=== PATIENT | female | born 1955 | race Caucasian/White ===

== ENCOUNTER → 2017-01-09 | Outpatient (CLI) | payer OTHER ==
[~2017-01-09] MED LIST: CITA10TA8 PO; DICL-201 PO; FLCP; LEVO200T PO; METH-307 PO
--- NOTE | 2017-01-09 12:40 | DIAGNOSTIC IMAGING REPORT ---
C-SPINE ROUTINE 4 OR 5 VIEWS CLINICAL HISTORY: CERVICALGIA; LUMBAGO COMPARISON STUDY: No previous studies for comparison. FINDINGS: Alignment of the cervical spine is anatomic. There is no fracture or suspicious lesion. There is moderate to marked disc space narrowing at C5-C6 with moderate disc space narrowing at C3-C4, C4-C5 and C6-C7. There is moderate multilevel facet arthrosis. IMPRESSION: 1. No cervical spine fracture. 2. Moderate multilevel degenerative disc disease and facet arthrosis most pronounced at C5-C6. Electronically signed by: Doug Alberts M.D. 01/09/2017 12:39 PM Dictated Date/Time: 01/09/2017 12:38 PM
--- NOTE | 2017-01-09 12:41 | DIAGNOSTIC IMAGING REPORT ---
L-SPINE MIN 4 VIEWS ROUTINE CLINICAL HISTORY: CERVICALGIA; LUMBAGO COMPARISON: None FINDINGS: There are suspected bilateral renal calculi, the largest of which is a 7 mm right renal calculus. Alignment of the lumbar spine is anatomic. Vertebral body heights are maintained. There is mild disc space narrowing with osteophytosis and vacuum disc phenomenon at L5-S1. There is moderate multilevel facet arthrosis. IMPRESSION: 1. No acute lumbar spine fracture. 2. Mild to moderate multilevel degenerative disc disease and facet arthrosis of the lumbar spine. 3. Suspected bilateral nephrolithiasis. Electronically signed by: oDug Alberts M.D. 01/09/2017 12:40 PM Dictated Date/Time: 01/09/2017 12:39 PM
== END | disposition home or self-care (01) ==
LOC: C.RADBC 11:37
PROVIDERS: ATTEND Anesthesiology
DX: M54.2 Cervicalgia (principal); M54.5 Low back pain

== ENCOUNTER → 2017-01-23 | Outpatient (CLI) | payer OTHER ==
--- NOTE | 2017-01-23 13:44 | DIAGNOSTIC IMAGING REPORT ---
CERVICAL WITHOUT CONTRAST HISTORY: 61 years-old Female CERVICAL RADICULITIS chronic neck pain with bilateral arm numbness COMPARISON: Cervical spine radiographs 01/09/2017 TECHNIQUE: Multiplanar multisequence MRI of the cervical spine was obtained without contrast. FINDINGS: There is reversal the normal cervical lordosis with 5 mm kyphosis centered at C5-C6. Intervertebral disc space narrowing is seen most prominently at the C3-C4 and C5-C6 levels as below. Signal within the cord is within normal limits. Imaged posterior fossa structures are unremarkable. Large [id number] localizer images demonstrate no gross abnormality of the neck or thorax. There is no compression deformity or marrow replacing process. Modic type I endplate changes are present at C4-C5 anteriorly. C2-C3: Broad-based posterior disc osteophyte complex without significant central canal or foraminal narrowing. Mild facet arthrosis. C3-C4: Moderate intervertebral disc space narrowing with mild to moderate facet arthrosis and broad-based posterior disc osteophyte complex causes mild bilateral foraminal narrowing. There is no significant central canal narrowing. C4-C5: Mild/moderate intervertebral disc space narrowing with moderate facet arthrosis is present in conjunction with broad-based posterior disc bulge and uncovertebral spurring effaces the ventral thecal sac without significant central canal narrowing. There is however mild/moderate left foraminal stenosis. C5-C6: Severe intervertebral disc space narrowing and moderate facet arthrosis is present with broad-based posterior disc bulge causing mild central canal, moderate right and mild to moderate left foraminal narrowing. C6-C7: Mild intervertebral disc space narrowing with broad-based posterior disc osteophyte complex and moderate facet arthrosis causes mild to moderate right foraminal narrowing. No significant left foraminal or central canal narrowing. C7-T1: No significant intervertebral disc space narrowing, central canal or foraminal narrowing. T1-T2: Broad-based posterior disc bulge effaces the ventral thecal sac and causes at least mild right foraminal narrowing. Central canal and left foramen are patent. The remaining imaged thoracic levels demonstrate no focal abnormality or high-grade narrowing on the sagittal imaging alone. IMPRESSION: 1. Discogenic degenerative changes are most pronounced at the C3-C4, C4-C5 and C5-C6 levels. At C5-C6, there is severe intervertebral disc space narrowing and moderate facet arthropathy with broad-based posterior disc bulge causing moderate right and mild to moderate left foraminal narrowing with mild central canal stenosis. 2. 5 degrees kyphotic curvature is centered at C5-C6. 3. Modic type I endplate changes are noted at C4-C5. 4. No fracture. The above report was generated using voice recognition software. It may contain grammatical, syntax or spelling errors. Electronically signed by: Renard Starks M.D. 01/23/2017 1:42 PM Dictated Date/Time: 01/23/2017 1:33 PM
== END | disposition home or self-care (01) ==
LOC: C.MRI 12:49
PROVIDERS: ATTEND Anesthesiology
DX: M54.12 Radiculopathy, cervical region (principal); M50.31 Other cervical disc degeneration, high cervical region; M50.321 Other cervical disc degeneration at C4-C5 level; M50.322 Other cervical disc degeneration at C5-C6 level; M48.02 Spinal stenosis, cervical region; M40.202 Unspecified kyphosis, cervical region

== ENCOUNTER 2017-07-24 19:27 | Emergency (ER) | payer OTHER ==
[~2017-07-24] VITALS: Ht 160 cm; Wt 88.8 kg
[~2017-07-24 19:27] MED LIST changes: -METH-307 PO
[2017-07-24 19:51] VITALS: TEMP 36.8; Ht 160 cm; Wt 88.8 kg
[2017-07-24] MEDS ORDERED: KETOROLAC TROMETHAMINE 30 MG/ML VIAL IV STA (20:32)
[2017-07-24] MEDS ORDERED: LIDODERM (LIDOCAINE) PATCH 5% TD STA (20:32)
[2017-07-24] MEDS ORDERED: HYDROmorphone INJ 0.5 MG/0.5 ML SYR IV STA (20:32)
[2017-07-24] MEDS ORDERED: ONDANSETRON INJ 2 MG/ML 2 ML VIAL IV STA (20:32)
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
[2017-07-24] MEDS ORDERED: CITA20TA4 PO (21:02)
[2017-07-24] MEDS ORDERED: METH-307 PO (21:02)
[2017-07-24] MEDS ORDERED: TRAM-10 PO (21:02)
[2017-07-24 21:19] LABS: BASO % 0.1 %; BASO ABS # 0.01 K/uL (0-0.2); EOS % 1.1 %; EOS ABS # 0.09 K/uL (0-0.5); HEMATOCRIT 37.8 % (37-47); HEMOGLOBIN 12.9 g/dL (12.0-16.0); IG# 0.01 K/uL (0.00-0.02); LYMPH % 29.3 %; LYMPH ABS # 2.35 K/uL (1.2-3.4); MEAN CORPUSCULAR HEMOGLOBIN 31.4 pg (25-34); MEAN CORPUSCULAR HGB CONC 34.1 g/dl (32-36); MEAN PLATELET VOLUME 9.7 fL (7.4-10.4); MONO % 8.1 %; MONO ABS # 0.65 K/uL (0.11-0.59); NEUT % 61.3 %; NEUT ABS # 4.91 K/uL (1.4-6.5); PLATELET COUNT 283 K/uL (130-400); RED CELL DISTRIBUTION WIDTH CV 12.5 % (11.5-14.5); RED CELL DISTRIBUTION WIDTH SD 42.4 fL (36.4-46.3); WHITE BLOOD COUNT 8.02 K/uL (4.8-10.8)
--- NOTE | 2017-07-24 21:27 | DIAGNOSTIC IMAGING REPORT ---
LUMBAR SPINE WITHOUT CT DOSE: HISTORY: Pain Pt c/o b/l flank pain TECHNIQUE: Multiaxial CT images of the lumbar spine were performed and reformatted in the sagittal and coronal plane without the use of contrast. A dose lowering technique was utilized adhering to the principles of ALARA. COMPARISON: None. FINDINGS: No fractures. No subluxation. Paraspinal soft tissues are unremarkable. Considerable degenerative disc changes noted at L5-S1 with associated vacuum disc. Transaxial images demonstrate moderate degenerative changes of posterior elements. A major component of narrowing of the spinal canal is not felt to be present. IMPRESSION: Degenerative change primarily at the L5-S1 disc space level. Otherwise unremarkable exam. Mild degenerative change of the posterior elements. No acute process. The above report was generated using voice recognition software. It may contain grammatical, syntax or spelling errors. Electronically signed by: Chiki Holloway M.D. 07/24/2017 9:26 PM Dictated Date/Time: 07/24/2017 9:25 PM
[2017-07-24 21:37] LABS: ALBUMIN 3.9 gm/dl (3.4-5.0); ALT/SGPT 22 U/L (12-78); BLOOD UREA NITROGEN 21 mg/dl (7-18); CALCIUM 9.2 mg/dl (8.5-10.1); CARBON DIOXIDE 27 mmol/L (21-32); CREATININE 1.03 mg/dl (0.60-1.20); GLUCOSE 101 mg/dl (70-99); LIPASE 331 U/L (73-393); POTASSIUM 3.6 mmol/L (3.5-5.1); SODIUM 140 mmol/L (136-145)
[2017-07-24 21:39] LABS: ALKALINE PHOSPHATASE 62 U/L (45-117); AST/SGOT 12 U/L (15-37); TOTAL PROTEIN 6.8 gm/dl (6.4-8.2)
--- NOTE | 2017-07-24 21:40 | DIAGNOSTIC IMAGING REPORT ---
ABD/PELVIS WITHOUT FOR STONE CT DOSE: 1537.33 mGy.cm HISTORY: Pain Pt c/o b/l flank pain TECHNIQUE: Multiaxial CT images of the abdomen and pelvis were performed without the use of intravenous and oral contrast according to the standard department stone protocol. A dose lowering technique was utilized adhering to the principles of ALARA. COMPARISON STUDY: None. FINDINGS: Lung bases are clear. Overall configuration of liver spleen and pancreas are unremarkable. There are findings of bilateral nonobstructing nephrocalcinosis. Ureters are unremarkable bilaterally with no evidence for distention. The bowel pattern is nonobstructive. The appendix is normal. The bladder is midline. There is no significant abdominal pelvic or inguinal adenopathy. Scattered diverticuli are present throughout the colon but there is no evidence for diverticulitis. IMPRESSION: 1. Bilateral nonobstructing renal nephrocalcinosis. 2. Study of the abdomen and pelvis is otherwise negative 3. Nonobstructive bowel pattern. 4. Normal appendix. The above report was generated using voice recognition software. It may contain grammatical, syntax or spelling errors. Electronically signed by: Chiki Holloway M.D. 07/24/2017 9:39 PM Dictated Date/Time: 07/24/2017 9:35 PM
[2017-07-24] MEDS ORDERED: LDDP5 TD (21:50)
[2017-07-24] MEDS ORDERED: OXYC-57 PO (21:50)
[2017-07-24 22:29] VITALS: BP 109/65; PULSE 84; O2SAT 98
== END 2017-07-24 22:30 | disposition home or self-care (01) ==
LOC: C.EDB 19:28 → C.EDC 22:30
DX: M54.5 Low back pain (principal); Z86.010 Personal history of colon polyps; E78.2 Mixed hyperlipidemia; F41.1 Generalized anxiety disorder; E03.9 Hypothyroidism, unspecified; M85.80 Other specified disorders of bone density and structure, unspecified site; Z90.710 Acquired absence of both cervix and uterus; Z79.899 Other long term (current) drug therapy